=== PATIENT | male | born 1995 | race Caucasian/White ===

== ENCOUNTER 2016-08-24 16:25 | Emergency (ER) | payer MEDICAID, OTHER ==
[~2016-08-24] VITALS: Ht 182.9 cm; Wt 79.5 kg
[2016-08-24 16:26] VITALS: BP 144/80
== END 2016-08-24 17:22 | disposition home or self-care (01) ==
LOC: ED 17:15
DX: D48.5 Neoplasm of uncertain behavior of skin (principal)
CPT/HCPCS: 99281